=== PATIENT | male | born 1965 | race Caucasian/White ===

== ENCOUNTER 2018-07-29 17:20 | Emergency (ER) | payer MEDICAID ==
[~2018-07-29] VITALS: Ht 175.3 cm; Wt 86.0 kg
[~2018-07-29 17:20] MED LIST: METF-416 PO
[2018-07-30 03:33] VITALS: BP 126/82
== END 2018-07-30 03:37 | disposition home or self-care (01) ==
LOC: ER 17:46
DX: M25.562 Pain in left knee (principal); M25.561 Pain in right knee; E11.9 Type 2 diabetes mellitus without complications; I10 Essential (primary) hypertension; W18.39XA Other fall on same level, initial encounter; Y93.89 Activity, other specified; Y92.89 Other specified places as the place of occurrence of the external cause; Y99.8 Other external cause status; Z98.890 Other specified postprocedural states; Z88.0 Allergy status to penicillin
CPT/HCPCS: 71045; 72100; 72170; 73562; 82962; 99284

== ENCOUNTER 2018-07-30 06:58 | Emergency (ER) | payer MEDICAID ==
[~2018-07-30] VITALS: Ht 177.8 cm; Wt 84.0 kg
[2018-07-30] MEDS ORDERED: KETOROLAC 30MG/ML VIAL IM ONE (08:45)
[2018-07-30 08:56] VITALS: BP 148/91
== END 2018-07-30 09:02 | disposition home or self-care (01) ==
LOC: ER 06:58
DX: M25.561 Pain in right knee (principal); E11.9 Type 2 diabetes mellitus without complications; I10 Essential (primary) hypertension; Z59.0 Homelessness; Z88.0 Allergy status to penicillin
CPT/HCPCS: 96372; 99283; J1885

== ENCOUNTER 2018-10-12 18:16 | Emergency (ER) | payer MEDICAID ==
[~2018-10-12] VITALS: Ht 177.8 cm; Wt 91.0 kg
[2018-10-12 18:23] VITALS: BP 133/75
== END 2018-10-12 21:29 | disposition left against medical advice (07) ==
LOC: ER 18:28
DX: Z53.21 Procedure and treatment not carried out due to patient leaving prior to being seen by health care provider (principal)

== ENCOUNTER 2022-12-03 20:05 | Inpatient (IN) | payer MEDICAID, OTHER ==
[~2022-12-03] VITALS: Ht 177.8 cm; Wt 87.1 kg
[2022-12-03] MEDS ORDERED: FAMOTIDINE 20MG/2ML VIAL IV STA (22:56)
[2022-12-03] MEDS ORDERED: SODIUM CHLORIDE 0.9% 1,000 ML IV ONE (23:00)
[2022-12-03 23:22] LABS: CHLORIDE 98 mEq/L (98-107)
[2022-12-03 23:24] LABS: BASOPHILS % 0.9 % (0.0-2.0); EOSINOPHILS % 5.2 % (0.0-5.0); HEMATOCRIT. 39.8 % (42.0-52.0); HEMOGLOBIN. 13.5 g/dL (14.0-18.0); LYMPHOCYTES % 45.7 % (20.0-50.0); MEAN CORPUSCULAR HEMOGLOBIN 32.9 pg (28.0-32.0); MEAN CORPUSCULAR VOLUME 97.2 fL (80.0-94.0); MONOCYTES % 10.8 % (2.0-8.0); NEUTROPHILS % 37.4 % (40.0-76.0); PLATELET 237 x1000/uL (130-400); RED CELL DISTRIBUTION WIDTH 14.7 % (11.6-14.6)
[2022-12-03 23:32] LABS: CLARITY URINE CLEAR (CLEAR); COLOR URINE YELLOW (YELLOW); KETONES URINE 2+ (NEGATIVE); LEUKOCYTE ESTERASE URINE NEGATIVE (NEGATIVE); NITRITE URINE NEGATIVE (NEGATIVE); OCCULT BLOOD URINE NEGATIVE (NEGATIVE); PH URINE 5.5 (4.5-8.0); PROTEIN URINE 1+ (NEGATIVE); SPECIFIC GRAVITY URINE 1.038 (1.005-1.030)
[2022-12-04 03:30] VITALS: BP 140/82
[2022-12-04 04:00] VITALS: BP 152/79
[2022-12-04] MEDS ORDERED: HYDROMORPHONE HCL/PF 2MG/ML CPJ IV PRN (05:00)
[2022-12-04] MEDS ORDERED: LORAZEPAM 0.5MG TABLET PO PRN (05:00)
[2022-12-04] MEDS ORDERED: MAGNESIUM/ALUMINUM HYDROXIDE/SIMETHICONE 30ML UDC PO PRN (05:00)
[2022-12-04] MEDS ORDERED: ONDANSETRON HCL 4MG/2ML INJ IV PRN (05:00)
[2022-12-04] MEDS ORDERED: ACETAMINOPHEN 325MG TABLET PO PRN (05:00)
[2022-12-04] MEDS ORDERED: DOCUSATE SODIUM 100MG CAPSULE PO PRN (05:00)
[2022-12-04 07:21] LABS: BASOPHILS % 0.9 % (0.0-2.0); EOSINOPHILS % 4.4 % (0.0-5.0); HEMATOCRIT. 35.6 % (42.0-52.0); HEMOGLOBIN. 12.3 g/dL (14.0-18.0); LYMPHOCYTES % 35.2 % (20.0-50.0); MEAN CORPUSCULAR HEMOGLOBIN 33.1 pg (28.0-32.0); MEAN PLATELET VOLUME 10.7 fl (7.4-10.4); NEUTROPHILS % 45.5 % (40.0-76.0); PLATELET 191 x1000/uL (130-400); RED BLOOD CELL COUNT 3.71 mill/uL (4.7-6.1); RED CELL DISTRIBUTION WIDTH 14.8 % (11.6-14.6)
[2022-12-04 08:00] VITALS: BP 143/82
[2022-12-04] MEDS ORDERED: MVI, ADULT NO.1 10 ML, FOLIC ACID 1 MG, THIAMINE HCL 100 MG in SODIUM CHLORIDE 0.9% 1,0... IV SCH ×4 (08:00)
[2022-12-04] MEDS ORDERED: DEXTROSE 50% WATER 50ML SYRINGE IV PRN (08:00)
[2022-12-04 08:02] LABS: CHLORIDE 100 mEq/L (98-107)
[2022-12-04] MEDS ORDERED: ENOXAPARIN 40MG/0.4ML SYR SUBCUT SCH (09:00)
[2022-12-04 12:00] VITALS: BP 156/82
[2022-12-04] MEDS: BLOOD SUGAR DIAGNOSTIC STRIP TEST SCH ×3 (12:24→20:47)
[2022-12-04] MEDS: INSULIN LISPRO 100 UNITS/ML SUBCUT SCH ×3 (12:42→20:46)
[2022-12-04 16:00] VITALS: BP 162/85
[2022-12-04] MEDS ORDERED: NALOXONE HCL 0.4MG/ML VIAL IV PRN (17:15)
== END 2022-12-04 23:30 | disposition short-term general hospital (02) | DRG 282 ==
LOC: ER 20:05 → 6EST 12-04 02:37 → EDBEDREQTM 12-04 02:41 → EDBEDREQ 12-04 02:41 → ENRESERV 12-04 03:21
PROVIDERS: ADMIT Internal Medicine Pulmonary Disease; ATTEND Internal Medicine Pulmonary Disease
DX: K85.90 Acute pancreatitis without necrosis or infection, unspecified (principal); E11.00 Type 2 diabetes mellitus with hyperosmolarity without nonketotic hyperglycemic-hyperosmolar coma (NKHHC); K76.0 Fatty (change of) liver, not elsewhere classified; H53.8 Other visual disturbances; I10 Essential (primary) hypertension; K86.1 Other chronic pancreatitis; Z20.822 Contact with and (suspected) exposure to COVID-19; Z59.02 Unsheltered homelessness; Z88.0 Allergy status to penicillin; Z79.84 Long term (current) use of oral hypoglycemic drugs
CPT/HCPCS: 36415; 71045; 74176; 76705; 80053; 81003; 82962; 83036; 83605; 85025; 87426; 93005; 99285; J1650; J1815; J3411; J3490; J7030

== ENCOUNTER 2023-05-08 15:22 | Emergency (ER) | payer OTHER ==
[~2023-05-08] VITALS: Ht 157.5 cm; Wt 80.0 kg
[~2023-05-08 15:22] MED LIST changes: +ACET-2708 MT; +IBUP-1525 MT
[2023-05-08 15:24] VITALS: TEMP 98.4; O2SAT 95
[2023-05-08 16:46] LABS: BASOPHILS % 0.6 % (0.0-2.0); EOSINOPHILS % 4.4 % (0.0-5.0); HEMATOCRIT. 33.7 % (42.0-52.0); HEMOGLOBIN. 11.2 g/dL (14.0-18.0); MEAN CORPUSCULAR HEMOGLOBIN 29.4 pg (28.0-32.0); MEAN CORPUSCULAR HGB CONC 33.3 g/dL (31.0-37.0); MEAN CORPUSCULAR VOLUME 88.3 fL (80.0-94.0); MEAN PLATELET VOLUME 10.6 fl (7.4-10.4); MONOCYTES % 6.5 % (2.0-8.0); NEUTROPHILS % 47.5 % (40.0-76.0); PLATELET 247 x1000/uL (130-400); RED BLOOD CELL COUNT 3.82 mill/uL (4.7-6.1); RED CELL DISTRIBUTION WIDTH 14.2 % (11.6-14.6); WHITE BLOOD COUNT 9.5 x1000/uL (4.5-11.0)
[2023-05-08 17:04] LABS: CHLORIDE 110 mEq/L (98-107); INDEX HEMOLYSI 1 (1-3); INDEX ICTERIC 1 (1-4); INDEX LIPEMIC 1 (1-3); POTASSIUM 3.7 mEq/L (3.5-5.1); SODIUM 138 mEq/L (136-145)
[2023-05-08 17:14] LABS: ALBUMIN 3.6 g/dL (3.4-5.0); ASPARTATE AMINOTRANSFERASE 15 IU/L (15-37); BILIRUBIN TOTAL 0.5 mg/dL (0.1-1.0); CALCIUM 8.7 mg/dL (8.5-10.1); CARBON DIOXIDE 24 mEq/L (21-32); GLUCOSE 102 mg/dL (70-105); UREA NITROGEN BLOOD 17 mg/dL (7-21)
[2023-05-08 17:38] LABS: ALANINE AMINOTRANSFERASE 19 IU/L (13-61); CREATININE 1.1 mg/dL (0.6-1.3); ETHANOL BLOOD 333 mg/dL (-10); PROTEIN TOTAL 7.5 g/dL (6.0-8.3)
[2023-05-08 18:56] VITALS: BP 148/70; PULSE 88; RESP 15
== END 2023-05-08 18:56 | disposition home or self-care (01) ==
LOC: ER 15:22
DX: F10.129 Alcohol abuse with intoxication, unspecified (principal); I10 Essential (primary) hypertension; Y90.8 Blood alcohol level of 240 mg/100 ml or more
CPT/HCPCS: 36415; 80053; 80320; 85025; 99283; G0480

== ENCOUNTER 2023-07-02 21:47 | Emergency (ER) | payer MEDICAID, OTHER ==
[~2023-07-02] VITALS: Ht 177.8 cm; Wt 93.0 kg
[2023-07-03 00:36] VITALS: BP 121/74; PULSE 65; RESP 17; TEMP 97.9; O2SAT 100
[2023-07-03] MEDS ORDERED: MED4 MT (01:36)
== END 2023-07-03 02:23 | disposition left against medical advice (07) ==
LOC: ER 21:47
DX: J02.8 Acute pharyngitis due to other specified organisms (principal); R45.851 Suicidal ideations; E11.9 Type 2 diabetes mellitus without complications; I10 Essential (primary) hypertension; Z88.0 Allergy status to penicillin
CPT/HCPCS: 99283

== ENCOUNTER 2023-07-17 13:27 | Emergency (ER) | payer OTHER ==
[~2023-07-17] VITALS: Ht 177.8 cm; Wt 111.0 kg
[~2023-07-17 13:27] MED LIST changes: +MED4 MT
[2023-07-17 13:39] VITALS: BP 143/72; PULSE 119; RESP 18; TEMP 97.9; O2SAT 98
[2023-07-17] MEDS ORDERED: IBUP-2028 MT (16:31)
[2023-07-17] MEDS ORDERED: BO1 TP (16:31)
== END 2023-07-17 16:42 | disposition home or self-care (01) ==
LOC: ER 13:27
DX: S50.02XA Contusion of left elbow, initial encounter (principal); E11.9 Type 2 diabetes mellitus without complications; I10 Essential (primary) hypertension; Z88.0 Allergy status to penicillin; W22.8XXA Striking against or struck by other objects, initial encounter; Y93.89 Activity, other specified; Y92.89 Other specified places as the place of occurrence of the external cause; Y99.8 Other external cause status
CPT/HCPCS: 73080; 99283

== ENCOUNTER 2023-10-28 14:06 | Emergency (ER) | payer MEDICAID, OTHER ==
[~2023-10-28] VITALS: Ht 172.7 cm; Wt 93.0 kg
[~2023-10-28 14:06] MED LIST changes: +BO1 TP; +IBUP-2028 MT
[2023-10-28 14:10] VITALS: O2SAT 99
[2023-10-28] MEDS: ACETAMINOPHEN 325MG TABLET PO ONE (15:04)
[2023-10-28 17:33] VITALS: BP 97/79; PULSE 74; RESP 16; TEMP 98
== END 2023-10-28 19:55 | disposition home or self-care (01) ==
LOC: ER 14:06
DX: M25.561 Pain in right knee (principal); E11.9 Type 2 diabetes mellitus without complications; I10 Essential (primary) hypertension; Z88.0 Allergy status to penicillin; Y08.89XA Assault by other specified means, initial encounter; Y93.89 Activity, other specified; Y92.89 Other specified places as the place of occurrence of the external cause; Y99.8 Other external cause status
CPT/HCPCS: 73110; 73130; 73590; 73630; 99284

== ENCOUNTER 2024-01-19 01:41 | Emergency (ER) | payer MEDICAID ==
[~2024-01-19] VITALS: Ht 177.8 cm; Wt 91.0 kg
[2024-01-19 01:51] VITALS: O2SAT 98
[2024-01-19] MEDS: MAGNESIUM/ALUMINUM HYDROXIDE/SIMETHICONE 30ML UDC PO STA (03:38)
[2024-01-19 06:00] VITALS: TEMP 97.9
[2024-01-19 06:36] VITALS: BP 162/83; PULSE 96; RESP 19
== END 2024-01-19 06:43 | disposition home or self-care (01) ==
LOC: ER 03:44
DX: R10.84 Generalized abdominal pain (principal); E11.9 Type 2 diabetes mellitus without complications; I10 Essential (primary) hypertension; Z98.890 Other specified postprocedural states; Z88.0 Allergy status to penicillin
CPT/HCPCS: 74176; 99284; Z7610 ×4

== ENCOUNTER 2024-02-07 18:36 | Emergency (ER) | payer MEDICAID, OTHER ==
[~2024-02-07] VITALS: Ht 182.9 cm; Wt 91.0 kg
[2024-02-07 19:01] VITALS: BP 117/68; PULSE 93; RESP 18; TEMP 98.2; O2SAT 96
== END 2024-02-07 20:31 | disposition left against medical advice (07) ==
LOC: ER 18:36
DX: H57.12 Ocular pain, left eye (principal); Z53.21 Procedure and treatment not carried out due to patient leaving prior to being seen by health care provider

== ENCOUNTER 2024-06-08 19:26 | Emergency (ER) | payer OTHER ==
[~2024-06-08] VITALS: Ht 177.8 cm; Wt 87.0 kg
[~2024-06-08 19:26] MED LIST changes: -MED4 MT; +METH4TAB95 MT
[2024-06-08 19:33] VITALS: O2SAT 98
[2024-06-08 19:43] VITALS: BP 126/78; PULSE 88; RESP 20; TEMP 98.2; O2SAT 97
[2024-06-08] MEDS ORDERED: ASPIRIN 325MG TABLET PO ONE (20:30)
[2024-06-08] MEDS ORDERED: MAGNESIUM/ALUMINUM HYDROXIDE/SIMETHICONE 30ML UDC PO ONE (20:30)
== END 2024-06-08 19:42 | disposition left against medical advice (07) ==
LOC: ER 19:26
DX: R07.89 Other chest pain (principal); E11.9 Type 2 diabetes mellitus without complications; I10 Essential (primary) hypertension; Z88.0 Allergy status to penicillin; Z79.899 Other long term (current) drug therapy; Z98.890 Other specified postprocedural states
CPT/HCPCS: 71045; 93005; 99283